=== PATIENT | male | born 1990 | race Caucasian/White ===

== ENCOUNTER 2023-06-13 09:17 | Emergency (ER) | payer SELFPAY ==
[2023-06-13 09:18] VITALS: BP 136/93; PULSE 89; RESP 14; TEMP 37.2; O2SAT 98; BMI 25.7
[2023-06-13 09:29] VITALS: BP 136/93; PULSE 89; RESP 14; TEMP 37.2; O2SAT 98
[2023-06-13 10:22] VITALS: BP 149/89; PULSE 73; RESP 16; TEMP 36.3; O2SAT 97
--- NOTE | 2023-06-13 11:10 | EDS_ITS ---
HPI History of Present Illness Chief Complaint: Wound Narrative Narrative: 33-year-old male presenting for wound evaluation. Patient was seen by [facility] urgent care yesterday for some small lesions within the tattoo that he had done on his right forearm done about a week ago. He noticed he had some breaks in the skin and they were little bit tender. Apparently these were previously draining. He was put on Bactrim yesterday and states he feels like he is a little bit nauseous but he states he was only put on Bactrim DS 1 daily and has not been taking it twice a day. He has not a fever. He denies any new injury to the arm. No history of MRSA. PFSH PFSH Medical History no medical history Home Medications ondansetron 4 mg disintegrating tablet 4 mg PO Q8H PRN PRN Nausea #14 tabs 06/13/23 [Rx Last Taken Unknown] sulfamethoxazole 800 mg-trimethoprim 160 mg tablet 1 tab PO BID 06/13/23 [History Last Taken Unknown] sulfamethoxazole 800 mg-trimethoprim 160 mg tablet (Bactrim DS) 1 tab PO DAILY #7 tabs 06/13/23 [Rx Last Taken Unknown] Allergy/AdvReac Type Severity Reaction Status Date / Time No Known Allergies Allergy Verified 06/13/23 09:18 Surgical History no surgical history Social History Smoking Status: Never smoker ROS [facility] ED Constitutional Constitutional ED: Denies chills, fever(s) or sweats Eyes Eyes: Denies blurry vision or change in vision ENT ENT ED: Denies ear pain or sore throat Cardiovascular Cardiovascular: Denies chest pain, palpitations or racing heartbeat Respiratory/Chest Respiratory/Chest: Denies cough, dyspnea or sputum Gastrointestinal Gastrointestinal: Reports nausea; Denies abdominal pain, constipation, diarrhea or vomiting Genitourinary Genitourinary ED: Denies dysuria, hematuria or urinary frequency Musculoskeletal Musculoskeletal: Denies arthralgias, myalgias or neck pain Integumentary Reports rash; Denies abscess or Abrasions Neurologic Neurologic: Denies headache(s), paresthesias or weakness Psychiatric Psychiatric: Denies anxiety, depression, suicidal ideation or suicidal thoughts Endocrine Endocrinology: Denies polydipsia or polyuria EXAM Physical Exam Const Vital Signs: 06/13/23 09:18 06/13/23 09:29 06/13/23 10:22 Temperature 98.9 F 98.9 F 97.4 F L Temperature Source Temporal Temporal Pulse Rate 89 89 73 Respiratory Rate 14 14 16 Blood Pressure 136/93 H 136/93 H 149/89 H Blood Pressure Mean 107 107 109 Pulse Ox 98 98 97 Oxygen Delivery Method Room Air Room Air Positive well nourished General Appearance ED: NAD HEENT normocephalic and atraumatic Resp normal respiratory effort Cardio regular rate and regular rhythm Extremity Extremity Narrative: Right forearm tattoo has 3-4 areas of raised skin which is not sloughing. There does not appear to be any fluctuance underneath these areas and they are minimally tender to palpation. I do not see any lymphangitic streaking and there is no significant tenderness, crepitance or erythema over the wound. Neuro oriented x3 and CN's II-XII intact bilaterally Psych mental status grossly normal Skin Skin Narrative: As described above MDM MDM MDM Narrative Medical decision making narrative: Patient presents for evaluation of his wounds. I reviewed the medical record. I was able to log into [id number], and I was able to find pertinent medical records available for review to compare to the patient's current lab/imaging/workup. Patient apparently had some drainage from the sites yesterday but I do not see any of that today which is reassuring. He did state that he was only on Bactrim once a day so I doubled his Bactrim to twice daily. We also discussed switching him to clindamycin but the patient does not want to take more than 2 doses a day. We discussed the probability that he may be intolerant to Bactrim but he still wants to continue with this. I will give him some Zofran for home. I gave him wound care instructions and return precautions. Impression: 1. Right forearm cellulitis Discharge Plan Triage Chief Complaint: Wound ED Provider: Malik Klein Dx/Rx/DC Orders Instructions: ED Post Op Wound Check, General Prescriptions: New sulfamethoxazole-trimethoprim [Bactrim DS] 800-160 mg tablet 1 tab PO DAILY Qty: 7 0RF ondansetron 4 mg tablet,disintegrating 4 mg PO Q8H PRN PRN (Reason: Nausea) Qty: 14 0RF No Action sulfamethoxazole-trimethoprim 800-160 mg tablet 1 tab PO BID Primary Care Provider: [facility] Primary Referrals: Susan Do MD [Med Staff - Active Staff] - As soon as possible [facility],Out of [Non-Staff] - Disposition Disposition: Home, Self Care Discharge Date/Time: 06/13/23 10:24
== END 2023-06-13 10:24 | disposition home or self-care (01) ==
LOC: ED 10:15
PROVIDERS: Emergency Provider Student in an Organized Health Care Education/Training Program; Visit Provider Student in an Organized Health Care Education/Training Program
DX: L03.113 Cellulitis of right upper limb (principal)
CPT/HCPCS: 99282